=== PATIENT | female | born 1980 | race Caucasian/White ===

== ENCOUNTER 2017-06-06 18:55 | Emergency (ER) | payer BC ==
[~2017-06-06] VITALS: Ht 154.9 cm; Wt 60.0 kg
[~2017-06-06 18:55] MED LIST: BACT PO; IBUP600T26 PO; ORTH0.25 PO; PERC5TAB12 PO; PROP40TA3 PO
[2017-06-06 18:59] VITALS: PULSE 84; RESP 20; TEMP 98.6; O2SAT 99
[2017-06-06] MEDS ORDERED: KETOROLAC TROMETHAMINE 60 MG/2 ML (IM) VIAL IM ONE (19:15)
[2017-06-06 19:35] VITALS: BP 258/119; PULSE 86; RESP 18; O2SAT 99
[2017-06-06] MEDS ORDERED: METOPROLOL TARTRATE 50 MG TAB PO ONE (19:45)
--- NOTE | 2017-06-06 19:55 | PD ---
HPI . Pelvic pain Chief Complaint: Abdominal Pain Time Seen by Provider: 19:09 Travel History International Travel<30 days: No Contact w/Intl Traveler<30days: No Traveled to known affect area: No History of Present Illness HPI This patient presents with a chief complaint of acute pelvic pain which started today. She describes it as crampy and rates it as 10/10. It has been unrelieved by Tylenol. She is currently on her menstrual cycle. She does report previous dysmenorrhea but states that it has never been this bad. She denies any associated fevers or vaginal discharge prior to the onset of her menstrual cycle. She denies any urinary tract symptoms. PFSH Past Medical History Asthma: Yes Diminished Hearing: No Hypertension: Yes (not taking meds) Ulcer: Yes ?: Not Menopausal: No : 3 Para: 2 Miscarriage: 1 Tubal Ligation: Yes (APR 10) Past Surgical History Section: Yes (01/07) Tonsillectomy: Yes (1992) Other Surgery: Yes (2005- section) Social History Alcohol Use: No Tobacco Use: No Substance Use: No Allergies-Medications (Allergen,Severity, Reaction): Coded Allergies: codeine (Unverified Allergy, Severe, HIVES,SOB, 06/06/17) Reported Meds & Prescriptions Reported Meds & Active Scripts Active Percocet (Oxycodone/Acetaminophen) 5 Mg/325 Mg Tab 1 Tab PO Q6H PRN Ibuprofen 600 Mg Tab 600 Mg PO Q8H PRN Bactrim (Trimethoprim/Sulfamethoxazole) 80 Mg/400 Mg Tab 1 Tab PO BID Ortho-Cyclen (Norgestimate-Ethinyl Estradiol) 0.25 /35 Tab 1 Tab PO DIRECTED 30 Days Take one tablet twice a day for five days or until bleeding stops (whichever comes first), then take one tablet daily. Propranolol Hcl (Propranolol HCl) 40 Mg Tab 40 Mg PO BID 30 Days Review of Systems Except as stated in HPI: all other systems reviewed are Neg General / Constitutional: No: Fever, Chills Gastrointestinal: No: Nausea, Vomiting, Diarrhea Genitourinary: Positive: Pelvic Pain, Vaginal Bleeding, No: Urgency, Frequency , Dysuria Physical Exam Narrative GENERAL: The patient appears histrionic. SKIN: warm/dry. Normal color and turgor. HEAD: Normocephalic. Atraumatic. EYES: Pupils equal and round. No scleral icterus. No injection or drainage. ENT: No nasal bleeding or discharge. Mucous membranes pink and moist. NECK: Trachea midline. Full range of motion without pain.. CARDIOVASCULAR: She is not tachycardic. RESPIRATORY: No accessory muscle use. GASTROINTESTINAL: Abdomen soft. Suprapubic tenderness. Bowel sounds present. Nondistended. MUSCULOSKELETAL: No obvious deformities. NEUROLOGICAL: Awake and alert. No obvious cranial nerve deficits. Motor grossly within normal limits. Normal speech. PSYCHIATRIC: Appropriate mood and affect; insight and judgment normal. Data Data Last Documented VS Vital Signs Date Time Temp Pulse Resp B/P (MAP) Pulse Ox O2 Delivery O2 Flow Rate FiO2 06/06/17 21:39 76 16 189/105 (133) 99 Room Air 06/06/17 18:59 98.6 Orders Orders Ed Urine Pregnancytest Poc (06/06/17 19:10) Ketorolac Inj (Toradol Inj) (06/06/17 19:15) Gc And Chlamydia Pcr (06/06/17 19:40) Complete Blood Count With Diff (06/06/17 19:40) Metoprolol Tartrate (Lopressor) (06/06/17 19:45) Labs Laboratory Tests Test 06/06/17 20:11 White Blood Count 14.1 TH/MM3 Red Blood Count 4.45 MIL/MM3 Hemoglobin 10.6 GM/DL Hematocrit 33.5 % Mean Corpuscular Volume 75.2 FL Mean Corpuscular Hemoglobin 23.7 PG Mean Corpuscular Hemoglobin Concent 31.6 % Red Cell Distribution Width 14.4 % Platelet Count 331 TH/MM3 Mean Platelet Volume 9.3 FL Neutrophils (%) (Auto) 81.2 % Lymphocytes (%) (Auto) 12.4 % Monocytes (%) (Auto) 5.4 % Eosinophils (%) (Auto) 0.8 % Basophils (%) (Auto) 0.2 % Neutrophils # (Auto) 11.5 TH/MM3 Lymphocytes # (Auto) 1.7 TH/MM3 Monocytes # (Auto) 0.8 TH/MM3 Eosinophils # (Auto) 0.1 TH/MM3 Basophils # (Auto) 0.0 TH/MM3 CBC Comment AUTO DIFF Differential Comment AUTO DIFF CONFIRMED MDM Medical Decision Making Medical Screen Exam Complete: Yes Emergency Medical Condition: Yes Differential Diagnosis Differential diagnosis of pelvic pain includes but is not limited to UTI, PID, ectopic , spontaneous AB, constipation, viral illness Narrative Course This patient presents with a chief complaint of pelvic cramping. She is on her menstrual cycle. She has a history of dysmenorrhea. Her hCG is negative. I will check a CBC to rule out anemia. Her pain is being treated with Toradol. The patient reports a history of hypertension but states that she has not been on antihypertensives lately because she does not currently have a primary care provider. I have given her a dose of her metoprolol. CBC Diagram 06/06/17 20:11 Vital Signs Date Time Temp Pulse Resp B/P (MAP) Pulse Ox O2 Delivery O2 Flow Rate FiO2 06/06/17 21:39 76 16 189/105 (133) 99 Room Air 06/06/17 21:03 79 18 233/111 (151) 99 Room Air 06/06/17 19:35 86 18 258/119 (165) 99 Room Air 06/06/17 19:26 18 06/06/17 18:59 98.6 84 20 99 The patient reports that she feels much better. She will be discharged home. I will give her prescriptions for ibuprofen and metoprolol. Diagnosis Primary Impression: Dysmenorrhea Additional Impression: Hypertension Qualified Codes: I10 - Essential (primary) hypertension Patient Instructions: Dysmenorrhea (DC), General Instructions Med/Other Pt SpecificInfo: Prescription(s) given Scripts Metoprolol Succinate ER 24 HR (Metoprolol Succinate ER 24 HR) 100 Mg Tab 100 MG PO DAILY, #30 TAB 0 Refills Prov: Amber Silvestre MD 06/06/17 Ibuprofen (Ibuprofen) 800 Mg Tab 800 MG PO Q8H Y for Pain/Inflammation, #60 TAB 0 Refills Prov: Amber Silvestre MD 06/06/17 Disposition: 01 DISCHARGE HOME Condition: Stable Amber Silvestre MD Jun 06, 2017 19:55
[2017-06-06 20:27] LABS: AUTOMATED NEUTROPHIL # 11.5 TH/MM3 (1.8-7.7); BASOPHIL % 0.2 % (0.0-2.0); EOSINOPHIL # 0.1 TH/MM3 (0-0.4); EOSINOPHIL % 0.8 % (0.0-4.0); HEMATOCRIT 33.5 % (35.0-46.0); HEMOGLOBIN 10.6 GM/DL (11.6-15.3); LYMPH % 12.4 % (9.0-44.0); LYMPHOCYTE # 1.7 TH/MM3 (1.0-4.8); MEAN CELL VOLUME 75.2 FL (80.0-100.0); MEAN CORPUSCULAR HEMOGLOBIN 23.7 PG (27.0-34.0); MEAN CORPUSCULAR HGB CONC 31.6 % (32.0-36.0); MEAN PLATELET VOLUME 9.3 FL (7.0-11.0); MONO % 5.4 % (0.0-8.0); MONOCYTE # 0.8 TH/MM3 (0-0.9); NEUT % 81.2 % (16.0-70.0); PLATELET COUNT 331 TH/MM3 (150-450); RED BLOOD COUNT 4.45 MIL/MM3 (4.00-5.30); RED CELL DISTRIBUTION WIDTH 14.4 % (11.6-17.2); WHITE BLOOD COUNT 14.1 TH/MM3 (4.0-11.0)
[2017-06-06 21:03] VITALS: BP 233/111; PULSE 79; RESP 18; O2SAT 99
[2017-06-06 21:39] VITALS: BP 189/105; PULSE 76; RESP 16; O2SAT 99
[2017-06-06] MEDS ORDERED: METO1TAB43 PO (22:16)
[2017-06-06] MEDS ORDERED: IBUP1TAB7 PO (22:16)
== END 2017-06-06 22:24 | disposition home or self-care (01) ==
LOC: PHED 18:55
DX: N94.6 Dysmenorrhea, unspecified (principal); I10 Essential (primary) hypertension; J45.909 Unspecified asthma, uncomplicated; Z88.5 Allergy status to narcotic agent
CPT/HCPCS: 84703; 85025; 87491; 87591; 96372; 99283; J1885

== ENCOUNTER 2017-11-16 11:15 | Observation (INO) ==
[2017-11-16 12:52] LABS: Baso % (Auto) 0.6 % (0.0-2.0); Eos # (Auto) 0.1 th/mm3 (0.0-0.4); Hematocrit 36.8 % (35.0-46.0); Hemoglobin 12.4 gm/dL (11.6-15.3); Lymph # (Auto) 2.5 th/mm3 (1.0-4.8); Lymph % (Auto) 32.3 % (9.0-44.0); Mean Corpuscular HGB Conc 33.7 % (32.0-36.0); Mean Corpuscular Hemoglobin 27.2 pg (27.0-34.0); Mean Corpuscular Volume 80.6 fL (80.0-100.0); Mean Platelet Volume 10.3 fL (7.0-11.0); Mono # (Auto) 0.5 th/mm3 (0.0-0.9); Mono % (Auto) 6.5 % (0.0-8.0); Neut # (Auto) 4.6 th/mm3 (1.8-7.7); Neut % (Auto) 59.6 % (16.0-70.0); Platelet Count 323 th/mm3 (150-450); Red Blood Count 4.56 mil/mm3 (4.00-5.30); Red Cell Distribution Width 16.6 % (11.6-17.2); White Blood Count 7.7 th/mm3 (4.0-11.0)
[2017-11-16 12:55] LABS: Chloride 100 meq/L (98-107); Potassium 3.9 meq/L (3.5-5.1); Sodium 137 meq/L (136-145)
[2017-11-16 12:58] LABS: Calcium 9.6 mg/dL (8.5-10.1)
[2017-11-16 12:59] LABS: Albumin 4.2 g/dL (3.4-5.0); Anion Gap 11 meq/L (5-15); Blood Urea Nitrogen 22 mg/dL (7-18); Carbon Dioxide 26.2 meq/L (21.0-32.0); Glucose,Random 106 mg/dL (74-106)
[2017-11-16 13:02] LABS: Alanine Aminotransferase 36 U/L (10-53); Aspartate Aminotransferase 23 U/L (15-37); Glomerular Filtration Rate 56 mL/min (>89)
[2017-11-16 13:04] LABS: Total Protein 8.1 g/dL (6.4-8.2)
[2017-11-16 13:05] LABS: Alkaline Phosphatase 153 U/L (45-117)
--- NOTE | 2017-11-16 13:07 | CT ---
EXAM DATE: 11/16/2017 12:58 PM EDT AGE/SEX: 37 years / Female INDICATIONS: Weakness, numbness and tingling in both hands CLINICAL DATA: This is the patient's initial encounter. Patient reports that signs and symptoms have been present for 1 day and indicates a pain score of 0/10. MEDICAL/SURGICAL HISTORY: Myocardial infarction. Hypertension. section. Tonsillectomy. Tubal ligation. Cardiac Cath RADIATION DOSE: 46.90 CTDI (mGy) COMPARISON: No prior exams available for comparison. TECHNIQUE: CT of the head without contrast. Using automated exposure control and adjustment of the mA and/or kV according to patient size, radiation dose was kept as low as reasonably achievable to ob tain optimal diagnostic quality images. DICOM format image data is available electronically for revi ew and comparison. FINDINGS: Cerebrum: There is a well-circumscribed CSF-like density involving the head of caudate on the right in the anterior limb of the basal ganglia on the left. Both are well-circumscribed and smoothly noel nated. The ventricles are normal for age. No evidence of midline shift, mass lesion, hemorrhage or a cute infarction. No extraaxial fluid collections are seen. Posterior Fossa: The cerebellum and brainstem are intact. The 4th ventricle is midline. The cerebe llopontine angle is unremarkable. Extracranial: The visualized portion of the orbits is intact. Skull: The calvaria is intact. No evidence of skull fracture. CONCLUSION: 1. No acute intracranial abnormality. 2. Small chronic lacunar infarctions bilaterally as detailed above. This is somewhat atypical for a patient of this age. . Electronically signed by: Jaun Allen MD 11/16/2017 1:06 PM EDT
[2017-11-16 13:31] LABS: Bilirubin,Urine Negative (Negative); Clarity,Urine Clear (Clear); Color,Urine Yellow (Yellw/Straw); Glucose,Urine (UA) Negative (Negative); Leukocyte Esterase,Urine Negative (Negative); Nitrite,Urine Negative (Negative); Specific Gravity,Urine Less/Equal 1.005 (1.002-1.035)
[2017-11-16 13:34] LABS: Collection Time,Urine 1310 hours
[2017-11-16 13:35] LABS: Squamous Epithelial Cell,Urine 0-5 /hpf (0-5)
[2017-11-16 13:39] LABS: Amphetamine Screen,Urine Neg (Neg); Barbiturate Screen,Urine Neg (Neg)
[2017-11-16 13:40] LABS: Cannabinoid Screen,Urine Pos (Neg); Cocaine Screen,Urine Neg (Neg)
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
[2017-11-16 14:01] LABS: Opiate Screen,Urine Neg (Neg)
[2017-11-16] MEDS ORDERED: Dextrose 50% in Water 50 ML Vial IV.PUSH PRN (14:50)
--- NOTE | 2017-11-16 15:04 | P.HP ---
History of Present Illness Primary Care Physician: Attila Tierney Chief Complaint: Paresthesia History of Present Illness: 37-year-old female with known history of hypertension, hyperlipidemia , history of CVA who presented to the hospital because of bilateral upper extremity paresthesia and facial paresthesia. 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 During that time she developed numbness and tingling of her bilateral upper extremities and face. This continue to persist and she try to take her blood pressure and noticed that it was mildly high with a low heart rate. She called the mother who recommended that she called the ambulance to take her to the hospital. However her mother brought her into the hospital instead. Upon presentation the patient still with the paresthesia in the upper extremity. CT scan did not indicate any acute abnormality. Because the patient's rather rare history of having a stroke at age 33 and given with her new neurological symptoms is recommended that the patient be observed in the hospital for further evaluation and management. Patient denies any visual disturbances, headache, speech difficulties, difficulty eating or swallowing food, unilateral weakness, disequilibrium, loss of bowel or bladder control, any tonic-clonic movements. - Diagnosis (1) Paresthesia Review of Systems All other systems reviewed negative except as stated in HPI Neurologic: Reports tingling/numbness/burning sensations PMFSH - History History Provided By: Patient, Family Member - Medical History Medical History: Medical History (Last Updated 11/16/17 @ 15:02 by DANAY Chapa) Marijuana use High cholesterol Hypertension Stroke - Surgical History Surgical History: Surgical History (Last Reviewed 11/16/17 @ 15:14 by DANAY Chapa) Hx of cardiac cath Hx of section Hx of tonsillectomy Hx of tubal ligation - Family History Family History: Family History (Last Updated 11/16/17 @ 15:03 by DANAY Chapa) Mother History of stroke History of heart disease Father History of heart disease - Tobacco History Second Hand Smoke Exposure: No Tobacco Use In Past 30 Days: No Smoking Status: Never smoker - Alcohol History How Often Do You Have a Drink Containing Alcohol: Never - Substance Use History Substance History: No History of Abuse, Active Abuse - Substance Use Type Marijuana Route Used: Inhalation - Travel History Recent Travel in the [facility] Within the Last 8 Weeks: No Recent Travel Out of the Country Within the Last 8 Weeks: No - Immunization History Tetanus Immunization: Unsure Hx Influenza Vaccine This Season: No Medications and Allergies Active Medications: Active Medications Aspirin (Aspirin) 325 mg PO DAILY [facility] Atorvastatin Calcium (Lipitor) 20 mg PO DAILY [facility] Dextrose (D50w Vial) 50 ml IV.PUSH UNSCH PRN PRN Reason: per Hypoglycemic Protocol Glucagon (Glucagon Inj) 1 mg OTHER UNSCH PRN PRN Reason: per Hypoglycemic Protocol Sodium Chloride (Ns Inj) 1,000 mls @ 70 mls/hr IV.CONT .[id number] [facility] Sodium Chloride (Ns Flush) 2 ml IV.FLUSH PRN PRN PRN Reason: FLUSH AFTER USING IV ACCESS Allergies Allergy/AdvReac Type Severity Reaction Status Date / Time codeine Allergy Severe HIVES,SOB Verified 11/16/17 11:27 Latex, Natural Rubber Allergy Severe Rash Verified 09/03/17 08:44 Home Medications Medication Instructions Recorded Confirmed Type atorvastatin 20 mg PO DAILY 11/16/17 11/16/17 History lisinopril-hydrochlorothiazide 1 tab PO DAILY 11/16/17 11/16/17 History metoprolol tartrate 50 mg PO BID 11/16/17 11/16/17 History Exam Vital signs: Vital Signs 11/16/17 11:23 11/16/17 11:32 11/16/17 12:02 Temperature 98.2 F Pulse Rate 62 56 L 54 L Respiratory Rate 16 18 16 Blood Pressure 164/89 H 147/79 H 142/77 H Pulse Oximetry 100 99 99 11/16/17 13:21 11/16/17 14:54 Temperature Pulse Rate 57 L 65 Respiratory Rate 18 16 Blood Pressure 140/74 139/87 Pulse Oximetry 99 99 Intake & Output 11/15/17 11/16/17 11/16/17 18:59 06:59 18:59 Weight 60 kg Narrative: GENERAL: Well-developed, well-nourished, in no acute distress. alert and orientated HEENT: Head is normocephalic without any lesions or masses noted. Facial features are symmetric. Eyes: Pupils equal round reactive to light. Extraocular muscles are intact. Conjunctivae were clear. Oropharyngeal: Pharynx without any erythema edema. Tongue is midline without deviation. Buccal mucosa is moist without any masses or lesions NECK: Supple without any masses. Trachea midline no deviation. No JVD, no bruits are appreciated CARDIAC: Regular rhythm, regular rate. S1/S2 are heard. No murmurs gallops or rubs. LUNGS: Clear to auscultation bilaterally. No wheeze, rhonchi or rales. No use of accessory muscles on inspiration or expiration. ABDOMEN: Soft, nontender. Nondistended. Bowel sounds heard in all 4 quadrants. No organomegaly or masses. Negative rebound, negative guarding EXTREMITIES: No edema, pulses are equal bilaterally. No cyanosis or clubbing NEUROLOGY: Mood and affect appear appropriate. Cranial nerves II through XII grossly intact. Muscle strength 5/5 in upper and lower extremities bilaterally. Deep tendon reflexes are 2+ in upper and lower extremities bilaterally. Results - Labs CBC & Chem 7: 11/16/17 12:21 11/16/17 12:21 Labs: Laboratory Results - last 24 hr 11/16/17 11/16/17 11/16/17 12:21 12:21 12:38 CBC w Diff Auto diff final WBC 7.7 RBC 4.56 Hgb 12.4 Hct 36.8 MCV 80.6 MCH 27.2 MCHC 33.7 RDW 16.6 Plt Count 323 MPV 10.3 Neut % (Auto) 59.6 Lymph % (Auto) 32.3 Taylor % (Auto) 6.5 Eos % (Auto) 1.0 Baso % (Auto) 0.6 Neut # (Auto) 4.6 Lymph # (Auto) 2.5 Taylor # (Auto) 0.5 Eos # (Auto) 0.1 Baso # (Auto) 0.0 WBC Differential . Differential Comment . Sodium 137 Potassium 3.9 Chloride 100 Carbon Dioxide 26.2 Anion Gap 11 BUN 22 H Creatinine 1.10 H Estimated GFR 56 L POC Glucose 105 Random Glucose 106 Calcium 9.6 Total Bilirubin 0.3 AST 23 ALT 36 Alkaline Phosphatase 153 H Troponin I Less than 0.02 L Total Protein 8.1 Albumin 4.2 TSH 1.580 Ur Collection Type Urine Color Urine Clarity Urine pH Ur Specific [place] Urine Protein Urine Glucose (UA) Urine Ketones Urine Occult Blood Urine Nitrate Urine Bilirubin Urine Urobilinogen Ur Leukocyte Esterase Ur Squamous Epith Cells Ur Transition Epith Cell Micro UA Comment Ur Microscopic Review Urine Culture Comments Urine Collection Time Urine Opiates Screen Ur Barbiturates Screen Ur Amphetamines Screen U Benzodiazepines Scrn Urine Cocaine Screen U Cannabinoids Screen Serum Alcohol Less than 3 11/16/17 11/16/17 13:10 13:10 CBC w Diff WBC RBC Hgb Hct MCV MCH MCHC RDW Plt Count MPV Neut % (Auto) Lymph % (Auto) Taylor % (Auto) Eos % (Auto) Baso % (Auto) Neut # (Auto) Lymph # (Auto) Taylor # (Auto) Eos # (Auto) Baso # (Auto) WBC Differential Differential Comment Sodium Potassium Chloride Carbon Dioxide Anion Gap BUN Creatinine Estimated GFR POC Glucose Random Glucose Calcium Total Bilirubin AST ALT Alkaline Phosphatase Troponin I Total Protein Albumin TSH Ur Collection Type Cath Urine Color Yellow Urine Clarity Clear Urine pH 7.0 Ur Specific [place] Less/equal 1.005 Urine Protein Negative Urine Glucose (UA) Negative Urine Ketones Negative Urine Occult Blood Negative Urine Nitrate Negative Urine Bilirubin Negative Urine Urobilinogen 1.0 Ur Leukocyte Esterase Negative Ur Squamous Epith Cells 0-5 Ur Transition Epith Cell 6-10 H Micro UA Comment Cath-culture not ind Ur Microscopic Review Microscopic reviewed Urine Culture Comments Cath-cult not ind Urine Collection Time 1310 Urine Opiates Screen Neg Ur Barbiturates Screen Neg Ur Amphetamines Screen Neg U Benzodiazepines Scrn Neg Urine Cocaine Screen Neg U Cannabinoids Screen Pos H Serum Alcohol - Imaging Impressions Head CT 11/16/17 12:28 CONCLUSION: 1. No acute intracranial abnormality. 2. Small chronic lacunar infarctions bilaterally as detailed above. This is somewhat atypical for a patient of this age. . Caprini VTE Risk Assessment Caprini VTE Risk Assessment: No/Low Risk (score <= 1) Caprini Risk Assessment Model: Point Value = 1 Point Value = 2 Point Value = 3 Point Value = 5 Age 41-60 Minor surgery BMI > 25 kg/m2 Swollen legs Varicose veins or History of unexplained or recurrent spontaneous Oral contraceptives or hormone replacement Sepsis (< 1 month) Serious lung disease, including pneumonia (< 1 month) Abnormal pulmonary function Acute myocardial infarction Congestive heart failure (< 1 month) History of inflammatory bowel disease Medical patient at bed rest Age 61-74 Arthroscopic surgery Major open surgery (> 45 min) Laparoscopic surgery (> 45 min) Malignancy Confined to bed (> 72 hours) Immobilizing plaster cast Central venous access Age >= 75 History of VTE Family history of VTE Factor V Leiden Prothrombin [id number] Lupus anticoagulant Anticardiolipin antibodies Elevated serum homocysteine Heparin-induced thrombocytopenia Other congenital or acquired thrombophilia Stroke (< 1 month) Elective arthroplasty Hip, pelvis, or leg fracture Acute spinal cord injury (< 1 month) Prophylaxis Regimen: Total Risk Factor Score Risk Level Prophylaxis Regimen 0-1 Low Early ambulation 2 Moderate Order ONE of the following: *Sequential Compression Device (SCD) *Heparin 5000 units SQ BID 3-4 Higher Order ONE of the following medications: *Heparin 5000 units SQ TID *Enoxaparin/Lovenox 40 mg SQ daily (WT < 150 kg, CrCl > 30 mL/min) *Enoxaparin/Lovenox 30 mg SQ daily (WT < 150 kg, CrCl > 10-29 mL/min) *Enoxaparin/Lovenox 30 mg SQ BID (WT < 150 kg, CrCl > 30 mL/min) AND/OR *Sequential Compression Device (SCD) 5 or more Highest Order ONE of the following medications: *Heparin 5000 units SQ TID (Preferred with Epidurals) *Enoxaparin/Lovenox 40 mg SQ daily (WT < 150 kg, CrCl > 30 mL/min) *Enoxaparin/Lovenox 30 mg SQ daily (WT < 150 kg, CrCl > 10-29 mL/min) *Enoxaparin/Lovenox 30 mg SQ BID (WT < 150 kg, CrCl > 30 mL/min) AND *Sequential Compression Device (SCD) Assessment and Plan - Assessment (1) Paresthesia Code(s): R20.2 - Paresthesia of skin Status: Acute - Plan Paresthesia, upper extremities and facial -Patient with high risk for stroke due to previous stroke, patient is not on any antiplatelet medication, -Obtain MRI, MRA, carotid ultrasound, echocardiogram, -Further lab studies include B12, folate, TSH, sed rate, lipid panel -PT/OT/ST evaluations -Head of bed flat with permissive hypertension -Neurology consultation Hypertension, hyper lipidemia -Resume statin -Permissive hypertension DVT prevention -Sequential compression devices
--- NOTE | 2017-11-16 16:34 | US ---
EXAM DATE: 11/16/2017 3:48 PM EDT AGE/SEX: 37 years / Female INDICATIONS: Weakness/TIA. CLINICAL DATA: This is the patient's initial encounter. Patient reports that signs and symptoms have been present for 3 days and indicates a pain score of 0/10. MEDICAL/SURGICAL HISTORY: Hypercholesterolemia. Hypertension. Stroke. section. Tons illectomy. Tubal ligation. Cardiac catheter. COMPARISON: No prior exams available for comparison. VELOCITY PARAMETERS: ICA/CCA Ratio: Right 1.0 , Left 1.0 ICA: Right 81 cm/sec, Left 86 cm/sec CCA: Right 82 cm/sec, Left 89 cm/sec ECA: Right 158 cm/sec, Left 153 cm/sec Vertebral: Right 26 cm/sec antegrade, Left 52 cm/sec antegrade FINDINGS: Right Carotid: No significant plaque is visualized.The waveforms are within normal limits. Left Carotid: No significant plaque is visualized. The waveforms are within normal limits. Other: None. CONCLUSION: Patent carotid arteries bilaterally. Antegrade flow involving both vertebral arteries. Electronically signed by: Jaun Allen MD 11/16/2017 4:33 PM EDT
--- NOTE | 2017-11-16 16:43 | MR ---
EXAM DATE: 11/16/2017 4:31 PM EDT AGE/SEX: 37 years / Female INDICATIONS: CVA. Facial numbness. Upper extremity numbness. CLINICAL DATA: This is the patient's initial encounter. Patient reports that signs and symptoms have been present for 1 day and indicates a pain score of 0/10. MEDICAL/SURGICAL HISTORY: Hypertension. Hypercholesterolemia. CVA. Tonsillectomy. s ection. Tubal ligation. COMPARISON: [facility], CT HEAD W/O CONTRAST, 11/16/2017. . TECHNIQUE: Multiplanar, multisequence examination of the brain was performed without contrast. FINDINGS: Cerebrum: Rounded areas of CSF signal in the left basal ganglia and to a lesser extent in the right caudate nucleus and right basal ganglia indicating old lacunar infarcts. The ventricles are normal fo r age. No evidence of midline shift, mass lesion, hemorrhage or acute infarction. No extraaxial flu id collections are seen. The pituitary gland and suprasellar cistern are normal in configuration. White Matter: No significant signal abnormalities are seen in the white matter. Posterior Fossa: The cerebellum and brainstem are intact. The 4th ventricle is midline. The cerebel lopontine angle is unremarkable. The cerebellar tonsils are normal in position. Diffusion Imaging: No focal areas of restricted diffusion are seen. No evidence of acute infarction . Extracranial: The visualized portions of the orbits and paranasal sinuses are unremarkable. CONCLUSION: 1. No acute intracranial findings. 2. Bilateral old basal ganglia lacunar infarcts. Electronically signed by: Darrius Leach MD 11/16/2017 4:42 PM EDT
--- NOTE | 2017-11-16 16:45 | MR ---
EXAM DATE: 11/16/2017 4:31 PM EDT AGE/SEX: 37 years / Female INDICATIONS: CVA. Facial numbness. Upper extremity numbness. CLINICAL DATA: This is the patient's initial encounter. Patient reports that signs and symptoms have been present for 1 day and indicates a pain score of 0/10. MEDICAL/SURGICAL HISTORY: Hypercholesterolemia. Hypertension. section. Tubal ligatio n. Female mesh implant. COMPARISON: No prior exams available for comparison. TECHNIQUE: 3D [id number] MRA was performed. Source images, multiplanar STS MIP, and 3D volum e MIP reconstructions were reviewed. FINDINGS: Moderate motion artifact. No evidence of proximal high-grade stenosis or occlusion of the major intra cranial arteries. No evidence of aneurysm. CONCLUSION: 1. Moderate motion artifact. 2. No acute findings identified. Electronically signed by: Darrius Leach MD 11/16/2017 4:44 PM EDT
[2017-11-16 17:46] LABS: Creatine Kinase 105 U/L (26-192)
[2017-11-16] MEDS: Sod Chloride 0.9% Inj 1,000 ML IV.CONT SCH (17:46)
--- NOTE | 2017-11-16 21:14 | P.CONNEU ---
History of Present Illness Service: neurology Consult date: 11/16/17 Reason for Consult: TIA Primary Care Provider: Attila Tierney Family Provider: Attila Tierney Chief Complaint: Paresthesia History of Present Illness: IT IS A PRIVILEGE TO PROVIDE A NEUROLOGY CONSULTATION FOR THIS 37YO LADY REPORTS A NEW ONSET FACE AND BOTH ARM TINGLING NUMBNESS Review of Systems All other systems reviewed negative except as stated in HPI PMFSH - History History Provided By: Patient - Medical History Medical History: Medical History (Last Updated 11/16/17 @ 15:02 by DANAY Chapa) Marijuana use High cholesterol Hypertension Stroke - Surgical History Surgical History: Surgical History (Last Reviewed 11/16/17 @ 15:14 by DANAY Chapa) Hx of cardiac cath Hx of section Hx of tonsillectomy Hx of tubal ligation - Family History Family History: Family History (Last Updated 11/16/17 @ 15:03 by DANAY Chapa) Mother History of stroke History of heart disease Father History of heart disease - Tobacco History Second Hand Smoke Exposure: No Tobacco Use In Past 30 Days: No Smoking Status: Never smoker - Alcohol History How Often Do You Have a Drink Containing Alcohol: Never - Substance Use History Substance History: Past History - Substance Use Type Marijuana Route Used: Inhalation Reason for Use: Calm Down - Travel History Recent Travel in the [place] Within the Last 8 Weeks: No Recent Travel Out of the Country Within the Last 8 Weeks: No - Immunization History Tetanus Immunization: Unsure Hx Influenza Vaccine This Season: No Medications and Allergies Active Medications: Active Medications Aspirin (Aspirin) 325 mg PO DAILY [facility] Atorvastatin Calcium (Lipitor) 20 mg PO DAILY [facility] Dextrose (D50w Vial) 50 ml IV.PUSH UNSCH PRN PRN Reason: per Hypoglycemic Protocol Glucagon (Glucagon Inj) 1 mg OTHER UNSCH PRN PRN Reason: per Hypoglycemic Protocol Sodium Chloride (Ns Inj) 1,000 mls @ 70 mls/hr IV.CONT .[id number] [facility] Last Admin: 11/16/17 17:46 Dose: 70 mls/hr Sodium Chloride (Ns Flush) 2 ml IV.FLUSH PRN PRN PRN Reason: FLUSH AFTER USING IV ACCESS Allergies Allergy/AdvReac Type Severity Reaction Status Date / Time codeine Allergy Severe HIVES,SOB Verified 11/16/17 11:27 Latex, Natural Rubber Allergy Severe Rash Verified 09/03/17 08:44 Home Medications Medication Instructions Recorded Confirmed Type atorvastatin 20 mg PO DAILY 11/16/17 11/16/17 History buspirone 10 mg PO BID 11/16/17 11/16/17 History lisinopril-hydrochlorothiazide 1 tab PO DAILY 11/16/17 11/16/17 History metoprolol tartrate 50 mg PO BID 11/16/17 11/16/17 History trazodone 50 mg PO HS PRN 11/16/17 11/16/17 History Exam Vital signs: Vital Signs 11/16/17 11:23 11/16/17 11:32 11/16/17 12:02 Temperature 98.2 F Pulse Rate 62 56 L 54 L Respiratory Rate 16 18 16 Blood Pressure 164/89 H 147/79 H 142/77 H Pulse Oximetry 100 99 99 11/16/17 13:21 11/16/17 14:54 11/16/17 16:00 Temperature 98.1 F Pulse Rate 57 L 65 69 Respiratory Rate 18 16 14 Blood Pressure 140/74 139/87 155/101 H Pulse Oximetry 99 99 98 11/16/17 18:50 11/16/17 20:00 11/16/17 20:12 Temperature 98.2 F Pulse Rate 68 72 Respiratory Rate 16 Blood Pressure 131/76 Pulse Oximetry 97 98 11/16/17 20:23 Temperature Pulse Rate Respiratory Rate Blood Pressure Pulse Oximetry 98 Intake & Output 11/16/17 11/16/17 11/17/17 06:59 18:59 06:59 Intake Total 30 / Balance 30 / 30 Weight 60 kg Intake: Oral 30 Other: # Voids 1 - Constitutional no acute distress - Routine HEENT Exam Head: Present: normocephalic, atraumatic Eye: Present: EOMI, PERRL ENT: Present: mucous membranes moist - Routine Neck Exam Present: supple. Absent: JVD, carotid bruit - Routine Chest/Breast/Axilla Exam Chest wall: Absent: tenderness - Routine Respiratory Exam Absent: rales, rhonchi - Routine Cardiovascular Exam Present: S1, S2. Absent: irregular rhythm - Routine Abdominal Exam Present: soft, normoactive bowel sounds. Absent: tenderness, rebound - Routine Extremities Exam Absent: cyanosis - Routine Skin Exam Present: intact - Routine Neurological Exam MENTAL STATUS + CN II-XII + MOTOR TONE NL NO PRONATOR DRIFT DTR1+ PLANTER STIMULATES FLEXOR RESPONSES SENSORY+ NL FNFT NO DYSMETRIA Results - Labs CBC & Chem 7: 11/16/17 12:21 11/16/17 12:21 Labs: Laboratory Results - last 24 hr 11/16/17 11/16/17 11/16/17 12:21 12:21 12:21 CBC w Diff Auto diff final WBC 7.7 RBC 4.56 Hgb 12.4 Hct 36.8 MCV 80.6 MCH 27.2 MCHC 33.7 RDW 16.6 Plt Count 323 MPV 10.3 Neut % (Auto) 59.6 Lymph % (Auto) 32.3 [place] % (Auto) 6.5 Eos % (Auto) 1.0 Baso % (Auto) 0.6 Neut # (Auto) 4.6 Lymph # (Auto) 2.5 [place] # (Auto) 0.5 Eos # (Auto) 0.1 Baso # (Auto) 0.0 WBC Differential . Differential Comment . ESR 2 Sodium 137 Potassium 3.9 Chloride 100 Carbon Dioxide 26.2 Anion Gap 11 BUN 22 H Creatinine 1.10 H Estimated GFR 56 L POC Glucose Random Glucose 106 Calcium 9.6 Total Bilirubin 0.3 AST 23 ALT 36 Alkaline Phosphatase 153 H Total Creatine Kinase Troponin I Less than 0.02 L Total Protein 8.1 Albumin 4.2 TSH 1.580 Ur Collection Type Urine Color Urine Clarity Urine pH Ur Specific [place] Urine Protein Urine Glucose (UA) Urine Ketones Urine Occult Blood Urine Nitrate Urine Bilirubin Urine Urobilinogen Ur Leukocyte Esterase Ur Squamous Epith Cells Ur Transition Epith Cell Micro UA Comment Ur Microscopic Review Urine Culture Comments Urine Collection Time Urine Opiates Screen Ur Barbiturates Screen Ur Amphetamines Screen U Benzodiazepines Scrn Urine Cocaine Screen U Cannabinoids Screen Serum Alcohol Less than 3 11/16/17 11/16/17 11/16/17 12:21 12:38 13:10 CBC w Diff WBC RBC Hgb Hct MCV MCH MCHC RDW Plt Count MPV Neut % (Auto) Lymph % (Auto) [place] % (Auto) Eos % (Auto) Baso % (Auto) Neut # (Auto) Lymph # (Auto) [place] # (Auto) Eos # (Auto) Baso # (Auto) WBC Differential Differential Comment ESR Sodium Potassium Chloride Carbon Dioxide Anion Gap BUN Creatinine Estimated GFR POC Glucose 105 Random Glucose Calcium Total Bilirubin AST ALT Alkaline Phosphatase Total Creatine Kinase Troponin I Total Protein Albumin TSH 1.600 Ur Collection Type Urine Color Urine Clarity Urine pH Ur Specific [place] Urine Protein Urine Glucose (UA) Urine Ketones Urine Occult Blood Urine Nitrate Urine Bilirubin Urine Urobilinogen Ur Leukocyte Esterase Ur Squamous Epith Cells Ur Transition Epith Cell Micro UA Comment Ur Microscopic Review Urine Culture Comments Urine Collection Time Urine Opiates Screen Neg Ur Barbiturates Screen Neg Ur Amphetamines Screen Neg U Benzodiazepines Scrn Neg Urine Cocaine Screen Neg U Cannabinoids Screen Pos H Serum Alcohol 11/16/17 11/16/17 11/16/17 13:10 17:05 17:20 CBC w Diff WBC RBC Hgb Hct MCV MCH MCHC RDW Plt Count MPV Neut % (Auto) Lymph % (Auto) [place] % (Auto) Eos % (Auto) Baso % (Auto) Neut # (Auto) Lymph # (Auto) [place] # (Auto) Eos # (Auto) Baso # (Auto) WBC Differential Differential Comment ESR Sodium Potassium Chloride Carbon Dioxide Anion Gap BUN Creatinine Estimated GFR POC Glucose 116 H Random Glucose Calcium Total Bilirubin AST ALT Alkaline Phosphatase Total Creatine Kinase 105 Troponin I Less than 0.02 L Total Protein Albumin TSH Ur Collection Type Cath Urine Color Yellow Urine Clarity Clear Urine pH 7.0 Ur Specific [place] Less/equal 1.005 Urine Protein Negative Urine Glucose (UA) Negative Urine Ketones Negative Urine Occult Blood Negative Urine Nitrate Negative Urine Bilirubin Negative Urine Urobilinogen 1.0 Ur Leukocyte Esterase Negative Ur Squamous Epith Cells 0-5 Ur Transition Epith Cell 6-10 H Micro UA Comment Cath-culture not ind Ur Microscopic Review Microscopic reviewed Urine Culture Comments Cath-cult not ind Urine Collection Time 1310 Urine Opiates Screen Ur Barbiturates Screen Ur Amphetamines Screen U Benzodiazepines Scrn Urine Cocaine Screen U Cannabinoids Screen Serum Alcohol - Imaging Impressions Carotid Doppler Study 11/16/17 00:00 CONCLUSION: Patent carotid arteries bilaterally. Antegrade flow involving both vertebral arteries. Head MRI 11/16/17 00:00 CONCLUSION: 1. No acute intracranial findings. 2. Bilateral old basal ganglia lacunar infarcts. Head MRA 11/16/17 00:00 CONCLUSION: 1. Moderate motion artifact. 2. No acute findings identified. Head CT 11/16/17 12:28 CONCLUSION: 1. No acute intracranial abnormality. 2. Small chronic lacunar infarctions bilaterally as detailed above. This is somewhat atypical for a patient of this age. . Review/Management - Review/Management Plan: 1. BRAIN MRI FOR ? MS 2. LAB TFT FE B12 HBA1C FOR TREATABLE CAUSES OF PN 3. NEURO CHECK 4. WILL D/W PMD FOR ABOVE APPROVELS THANKS FOR THE COURTESY OF THIS VERY KINDLY CAIO
[2017-11-16 21:39] LABS: Vitamin B12 676 pg/mL (193-986)
--- NOTE | 2017-11-16 22:02 | ECG ---
Date Performed: 11/16/2017 Time Performed: 12:57:32 PTAGE: 37 years EKG: SINUS BRADYCARDIA WITH SINUS ARRHYTHMIA BORDERLINE ECG PREVIOUS TRACING : 09/03/2017 08.34 DOCTOR: Maximiliano Kim Interpretating Date/Time 11/16/2017 22:00:03
[2017-11-17 01:24] LABS: Creatine Kinase 64 U/L (26-192)
[2017-11-17] MEDS: Sod Chloride 0.9% Inj 1,000 ML IV.CONT SCH ×2 (06:14→08:04)
[2017-11-17] MEDS ORDERED: Aspirin 325 MG Tablet PO SCH (09:00)
--- NOTE | 2017-11-17 10:47 | P.PN ---
Subjective Interval history: 37-year-old female who is seen and examined today for follow-up on bilateral upper extremity and facial paresthesia. Patient states that she still has the symptoms. She denies any unilateral weakness or any difficulty in eating, swallowing or speaking. Vital signs remained stable. Patient remains afebrile. Physical Exam Vital signs: Vital Signs 11/16/17 11:23 11/16/17 11:32 11/16/17 12:02 Temperature 98.2 F Pulse Rate 62 56 L 54 L Respiratory Rate 16 18 16 Blood Pressure 164/89 H 147/79 H 142/77 H Pulse Oximetry 100 99 99 11/16/17 13:21 11/16/17 14:54 11/16/17 16:00 Temperature 98.1 F Pulse Rate 57 L 65 69 Respiratory Rate 18 16 14 Blood Pressure 140/74 139/87 155/101 H Pulse Oximetry 99 99 98 11/16/17 18:50 11/16/17 20:00 11/16/17 20:12 Temperature 98.2 F Pulse Rate 68 75 Respiratory Rate 16 Blood Pressure 131/76 Pulse Oximetry 97 98 11/16/17 20:23 11/17/17 00:00 11/17/17 04:00 Temperature 97.4 F L 96.2 F L Pulse Rate 57 L 70 Respiratory Rate 16 16 Blood Pressure 126/69 111/63 Pulse Oximetry 98 98 98 11/17/17 08:00 Temperature 97.8 F Pulse Rate 65 Respiratory Rate 21 Blood Pressure 136/80 Pulse Oximetry 100 Intake & Output 11/16/17 11/17/17 11/17/17 18:59 06:59 18:59 Intake Total 30 / 30 240 / 240 Output Total 300 / 300 Balance 30 / 30 -60 / -60 Weight 60 kg 60 kg Intake: Oral 30 / 30 240 / 240 Output: Urine 300 / 300 Other: # Voids 1 2 Narrative: GENERAL: Well-developed, well-nourished, in no acute distress. alert and orientated HEENT: Head is normocephalic without any lesions or masses noted. Facial features are symmetric. Eyes: Extraocular muscles are intact. Conjunctivae were clear. NECK: Supple without any masses. Trachea midline no deviation. No JVD, CARDIAC: Regular rhythm, regular rate. S1/S2 are heard. No murmurs gallops or rubs. LUNGS: Clear to auscultation bilaterally. No wheeze, rhonchi or rales. No use of accessory muscles on inspiration or expiration. ABDOMEN: Soft, nontender. Nondistended. Bowel sounds heard in all 4 quadrants. No organomegaly or masses. Negative rebound, negative guarding EXTREMITIES: No edema, pulses are equal bilaterally. No cyanosis or clubbing NEUROLOGY: Mood and affect appear appropriate. Cranial nerves II through XII grossly intact. Moving all extremities, speech is clear - Urinary Catheter Management Straight Cath placed during this visit: yes, but has since been removed by the nurse Reason for continuing: Not indwelling catheter Insertion date: 11/16/17 Insertion time: 13:10 Removal date: 11/16/17 Removal time: 13:11 Results - Labs CBC & Chem 7: 11/16/17 12:21 11/16/17 12:21 Laboratory Results - last 24 hr 11/16/17 11/16/17 11/16/17 12:21 12:21 12:21 CBC w Diff Auto diff final WBC 7.7 RBC 4.56 Hgb 12.4 Hct 36.8 MCV 80.6 MCH 27.2 MCHC 33.7 RDW 16.6 Plt Count 323 MPV 10.3 Neut % (Auto) 59.6 Lymph % (Auto) 32.3 [place] % (Auto) 6.5 Eos % (Auto) 1.0 Baso % (Auto) 0.6 Neut # (Auto) 4.6 Lymph # (Auto) 2.5 [place] # (Auto) 0.5 Eos # (Auto) 0.1 Baso # (Auto) 0.0 WBC Differential . Differential Comment . ESR 2 Sodium 137 Potassium 3.9 Chloride 100 Carbon Dioxide 26.2 Anion Gap 11 BUN 22 H Creatinine 1.10 H Estimated GFR 56 L POC Glucose Random Glucose 106 Calcium 9.6 Total Bilirubin 0.3 AST 23 ALT 36 Alkaline Phosphatase 153 H Total Creatine Kinase Troponin I Less than 0.02 L Total Protein 8.1 Albumin 4.2 Vitamin B12 Folate TSH 1.580 Ur Collection Type Urine Color Urine Clarity Urine pH Ur Specific [place] Urine Protein Urine Glucose (UA) Urine Ketones Urine Occult Blood Urine Nitrate Urine Bilirubin Urine Urobilinogen Ur Leukocyte Esterase Ur Squamous Epith Cells Ur Transition Epith Cell Micro UA Comment Ur Microscopic Review Urine Culture Comments Urine Collection Time Urine Opiates Screen Ur Barbiturates Screen Ur Amphetamines Screen U Benzodiazepines Scrn Urine Cocaine Screen U Cannabinoids Screen Serum Alcohol Less than 3 11/16/17 11/16/17 11/16/17 12:21 12:38 13:10 CBC w Diff WBC RBC Hgb Hct MCV MCH MCHC RDW Plt Count MPV Neut % (Auto) Lymph % (Auto) [place] % (Auto) Eos % (Auto) Baso % (Auto) Neut # (Auto) Lymph # (Auto) [place] # (Auto) Eos # (Auto) Baso # (Auto) WBC Differential Differential Comment ESR Sodium Potassium Chloride Carbon Dioxide Anion Gap BUN Creatinine Estimated GFR POC Glucose 105 Random Glucose Calcium Total Bilirubin AST ALT Alkaline Phosphatase Total Creatine Kinase Troponin I Total Protein Albumin Vitamin B12 Folate TSH 1.600 Ur Collection Type Urine Color Urine Clarity Urine pH Ur Specific [place] Urine Protein Urine Glucose (UA) Urine Ketones Urine Occult Blood Urine Nitrate Urine Bilirubin Urine Urobilinogen Ur Leukocyte Esterase Ur Squamous Epith Cells Ur Transition Epith Cell Micro UA Comment Ur Microscopic Review Urine Culture Comments Urine Collection Time Urine Opiates Screen Neg Ur Barbiturates Screen Neg Ur Amphetamines Screen Neg U Benzodiazepines Scrn Neg Urine Cocaine Screen Neg U Cannabinoids Screen Pos H Serum Alcohol 11/16/17 11/16/17 11/16/17 13:10 17:05 17:20 CBC w Diff WBC RBC Hgb Hct MCV MCH MCHC RDW Plt Count MPV Neut % (Auto) Lymph % (Auto) [place] % (Auto) Eos % (Auto) Baso % (Auto) Neut # (Auto) Lymph # (Auto) [place] # (Auto) Eos # (Auto) Baso # (Auto) WBC Differential Differential Comment ESR Sodium Potassium Chloride Carbon Dioxide Anion Gap BUN Creatinine Estimated GFR POC Glucose 116 H Random Glucose Calcium Total Bilirubin AST ALT Alkaline Phosphatase Total Creatine Kinase 105 Troponin I Less than 0.02 L Total Protein Albumin Vitamin B12 676 Folate Greater than 20.0 H TSH Ur Collection Type Cath Urine Color Yellow Urine Clarity Clear Urine pH 7.0 Ur Specific [place] Less/equal 1.005 Urine Protein Negative Urine Glucose (UA) Negative Urine Ketones Negative Urine Occult Blood Negative Urine Nitrate Negative Urine Bilirubin Negative Urine Urobilinogen 1.0 Ur Leukocyte Esterase Negative Ur Squamous Epith Cells 0-5 Ur Transition Epith Cell 6-10 H Micro UA Comment Cath-culture not ind Ur Microscopic Review Microscopic reviewed Urine Culture Comments Cath-cult not ind Urine Collection Time 1310 Urine Opiates Screen Ur Barbiturates Screen Ur Amphetamines Screen U Benzodiazepines Scrn Urine Cocaine Screen U Cannabinoids Screen Serum Alcohol 11/17/17 11/17/17 11/17/17 00:26 04:33 07:54 CBC w Diff WBC RBC Hgb Hct MCV MCH MCHC RDW Plt Count MPV Neut % (Auto) Lymph % (Auto) [place] % (Auto) Eos % (Auto) Baso % (Auto) Neut # (Auto) Lymph # (Auto) [place] # (Auto) Eos # (Auto) Baso # (Auto) WBC Differential Differential Comment ESR Sodium Potassium Chloride Carbon Dioxide Anion Gap BUN Creatinine Estimated GFR POC Glucose 100 107 Random Glucose Calcium Total Bilirubin AST ALT Alkaline Phosphatase Total Creatine Kinase 64 Troponin I Less than 0.02 L Total Protein Albumin Vitamin B12 Folate TSH Ur Collection Type Urine Color Urine Clarity Urine pH Ur Specific [place] Urine Protein Urine Glucose (UA) Urine Ketones Urine Occult Blood Urine Nitrate Urine Bilirubin Urine Urobilinogen Ur Leukocyte Esterase Ur Squamous Epith Cells Ur Transition Epith Cell Micro UA Comment Ur Microscopic Review Urine Culture Comments Urine Collection Time Urine Opiates Screen Ur Barbiturates Screen Ur Amphetamines Screen U Benzodiazepines Scrn Urine Cocaine Screen U Cannabinoids Screen Serum Alcohol - Imaging Impressions Carotid Doppler Study 11/16/17 00:00 CONCLUSION: Patent carotid arteries bilaterally. Antegrade flow involving both vertebral arteries. Head MRI 11/16/17 00:00 CONCLUSION: 1. No acute intracranial findings. 2. Bilateral old basal ganglia lacunar infarcts. Head MRA 11/16/17 00:00 CONCLUSION: 1. Moderate motion artifact. 2. No acute findings identified. Head CT 11/16/17 12:28 CONCLUSION: 1. No acute intracranial abnormality. 2. Small chronic lacunar infarctions bilaterally as detailed above. This is somewhat atypical for a patient of this age. . - Procedures ECHOCARDIOGRAM CONCLUSIONS The left ventricular systolic function is normal with an estimated ejection fraction in the range of 60-65%. Normal left ventricular size. Wall thickness is normal. No regional wall motion abnormalities are present. Trivial pulmonary valve regurgitation. Assessment and Plan - Assessment (1) Paresthesia Code(s): R20.2 - Paresthesia of skin Status: Acute - Plan Paresthesia, upper extremities and facial -Patient with high risk for stroke due to previous stroke, patient is not on any antiplatelet medication, -MRI did not indicate any acute findings. Does continue to show the bilateral basal ganglia lacunar infarcts, does not indicate any demyelinization process -MRA was unremarkable for any abnormalities -Echocardiogram gram results as above -Carotid ultrasound was unremarkable -Further lab studies to include B12, folate, TSH, sed rate were unremarkable -PT/OT/ST evaluations have been completed -Neurology consultation has been performed. Discussed with neurologist today who indicated that since workup is negative. Patient can undergo outpatient follow-up and evaluation for her continued paresthesia. No further inpatient workup at this time. Hypertension, hyper lipidemia -LDL 65 -Resume statin -Permissive hypertension DVT prevention -Sequential compression devices Discharge Planning: Discharge home in stable condition Activity: Ad kavita. Diet: Healthy heart diet Medication per medication reconciliation Follow-up with primary medical doctor in 1 week
[2017-11-17 11:39] LABS: Chol/HDL Ratio 3.6 Ratio; HDL Cholesterol 37.7 mg/dL (40.0-60.0)
[2017-11-17 13:16] LABS: Hemoglobin A1c 6.8 % (4.3-6.0)
--- NOTE | 2017-11-17 13:27 | ECHRPT ---
Indication: CVA/TIA CONCLUSIONS The left ventricular systolic function is normal with an estimated ejection fraction in the range of 60-65%. Normal left ventricular size. Wall thickness is normal. No regional wall motion abnormalities are present. Trivial pulmonary valve regurgitation. BP: / HR: Rhythm: Sinus MEASUREMENTS (Male / Female) Normal Values Technical Quality:Good 2D ECHO LV Diastolic Diameter PLAX 3.1 cm 4.2 - 5.9 / 3.9 - 5.3 cm LV Systolic Diameter PLAX 2.3 cm IVS Diastolic Thickness 1.0 cm 0.6 - 1.0 / 0.6 - 0.9 cm LVPW Diastolic Thickness 1.0 cm 0.6 - 1.0 / 0.6 - 0.9 cm LV Relative Wall Thickness 0.6 RV Internal Dim ED PLAX 2.9 cm LVOT Diameter 1.8 cm LA Systolic Diameter LX 3.1 cm 3.0 - 4.0 / 2.7 - 3.8 cm LV Ejection Fraction MOD 4C 68.2 % LV Ejection Fraction 4C AL 68.4 % M-MODE Aortic Root Diameter MM 2.7 cm LA Systolic Diameter MM 3.5 cm LA Ao Ratio MM 1.3 AV Cusp Separation MM 1.7 cm DOPPLER AV Peak Velocity 157.0 cm/s AV Peak Gradient 9.9 mmHg LVOT Peak Velocity 139.0 cm/s LVOT Peak Gradient 7.7 mmHg AV Area Cont Eq pk 2.3 cm MV Area PHT 2.3 cm Mitral E Point Velocity 68.6 cm/s Mitral A Point Velocity 52.8 cm/s Mitral E to A Ratio 1.3 LV E' Lateral Velocity 11.5 cm/s Mitral E to LV E' Lateral Ratio 6.0 LV E' Septal Velocity 8.1 cm/s Mitral E to LV E' Septal Ratio 8.5 PV Peak Velocity 111.0 cm/s PV Peak Gradient 4.9 mmHg FINDINGS LEFT VENTRICLE The left ventricular systolic function is normal with an estimated ejection fraction in the range of 60-65%. Normal left ventricular size. Wall thickness is normal. No regional wall motion abnormalities are present. RIGHT VENTRICLE Normal right ventricular size and systolic function. LEFT ATRIUM The left atrial size is normal. RIGHT ATRIUM The right atrial size is normal. ATRIAL SEPTUM Normal atrial septal thickness without atrial level shunting by limited color doppler interrogation. AORTA The aortic root and proximal ascending aorta are normal in size on limited imaging. MITRAL VALVE Structurally normal mitral valve. No mitral valve stenosis or regurgitation. AORTIC VALVE Trileaflet aortic valve. No aortic valve stenosis or regurgitation. TRICUSPID VALVE Structurally normal tricuspid valve. No tricuspid valve stenosis or regurgitation. PULMONARY VALVE Trivial pulmonary valve regurgitation. VESSELS The inferior vena cava is normal in size. PERICARDIUM No pericardial effusion. Maximiliano Kim MD (Electronically Signed) Final Date:17 November 2017 13:25
[2017-11-17 14:53] VITALS: RESP 19
[2017-11-17 16:39] VITALS: BP 109/73; PULSE 58; TEMP 98.5; O2SAT 100
[2017-11-17] MEDS ORDERED: traZODone 50 MG Tablet PO PRN (21:00)
== END 2017-11-17 17:15 | disposition home or self-care (01) ==
LOC: PHED 11:15 → INTOOBSV 14:36 → PHEDA 14:36 → PH3 16:30
PROVIDERS: ADMIT Family Medicine; ATTEND Family Medicine